=== PATIENT | female | born 1995 | race Caucasian/White ===

== ENCOUNTER 2021-12-10 12:26 | Outpatient (CLI) | payer OTHER | END 2021-12-10 12:27 | disposition EMS.NT | LOC: EMS 12:26 | DX: R06.02 Shortness of breath (principal); F41.9 Anxiety disorder, unspecified ==

== ENCOUNTER 2021-12-24 06:09 | Day surgery (SDC) | payer OTHER ==
[2021-12-24 06:26] LABS: HCG UR QUAL NEGATIVE
[2021-12-24] MEDS ORDERED: LACTATED RINGERS 1,000 ML IV ONE (06:26)
[2021-12-24] MEDS ORDERED: CEFAZOLIN SODIUM IN 0.9 % NACL 2 GM/50 ML BAG IV ONE (06:33)
--- NOTE | 2021-12-24 06:52 | ANESTHESIA ---
Pre-Anesthesia VS, & Labs - Diagnosis cholecystitis - Procedure laparoscopic cholecystectomy Vital Signs: Temp Pulse Resp BP Pulse Ox 36.6 C 89 20 111/75 98 12/24/21 06:27 12/24/21 06:27 12/24/21 06:27 12/24/21 06:27 12/24/21 06:27 Height: 5 ft 2 in Weight (kg): 75.4 kg Body Mass Index: 30.4 BMI Classification: Obese - NPO >8 hours - Is Patient ?: No Home Medications and Allergies Dicyclomine HCl 20 mg PO QID PRN 12/10/21 Spironolactone [Aldactone] 50 mg PO BID 12/10/21 Allergies/Adverse Reactions: Allergies Allergy/AdvReac Type Severity Reaction Status Date / Time No Known Drug Allergies Allergy Verified 12/24/21 06:09 Anes History & Medical History - Anesthetic History Anesthesia Complications: reports: No previous complications - Medical History Cardiovascular: reports: None, Other Pulmonary: reports: None Gastrointestinal: reports: None Urinary: reports: None Musculoskeletal: reports: None Endocrine/Autoimmune: reports: Other Skin: reports: Eczema Smoking Status: Never smoker History of Cancer?: No - Surgical History Gynecologic: reports: section Exam General: Alert, Oriented x3 Dental: WNL Mouth Opening: Greater than 4 Fingerbreadths Neck Mobility: Normal Mallampati classification: III Thyromental Distance: 4-6 cm Respiratory: Lungs clear Cardiovascular: Regular rate Plan Anesthesia Type: General Consent for Procedure(s) Verified and Reviewed: Yes Code Status: Attempt Resuscitation ASA classification: 2-Mild systemic disease Is this case an emergency?: No
[2021-12-24] MEDS ORDERED: NALOXONE 0.4 MG/ML VIAL IVP PRN (07:08)
[2021-12-24] MEDS ORDERED: METOCLOPRAMIDE 10 MG/2 ML VIAL IVP PRN (07:08)
[2021-12-24] MEDS ORDERED: fentaNYL 100 MCG/2 ML VIAL IVP PRN (07:08)
[2021-12-24] MEDS ORDERED: ePHEDrine 50 MG/ML VIAL IVP PRN (07:08)
[2021-12-24] MEDS ORDERED: HYDROmorphone 0.5 MG/0.5 ML SYRINGE IVP PRN (07:08)
[2021-12-24] MEDS ORDERED: MORPHINE 2 MG/ML CARPUJECT IVP PRN (07:08)
[2021-12-24] MEDS ORDERED: ATROPINE ABBOJECT 1 MG/10 ML SYRINGE IVP PRN (07:08)
[2021-12-24] MEDS ORDERED: ONDANSETRON 4 MG/2 ML VIAL IVP PRN ×2 (07:08→10:14)
[2021-12-24] MEDS ORDERED: LIDOCAINE-MPF 2% 5 ML VIAL ONE (07:10)
[2021-12-24] MEDS ORDERED: PROPOFOL 200 MG/20 ML VIAL IVP ONE ×2 (07:10→08:52)
[2021-12-24] MEDS ORDERED: ONDANSETRON 4 MG/2 ML VIAL ONE (07:10)
[2021-12-24] MEDS ORDERED: ROCURONIUM 50 MG/5 ML VIAL ONE (07:10)
[2021-12-24] MEDS ORDERED: MIDAZOLAM 2 MG/2 ML VIAL ONE (07:11)
[2021-12-24] MEDS ORDERED: fentaNYL 100 MCG/2 ML VIAL ONE ×2 (07:11→09:46)
[2021-12-24] MEDS ORDERED: DEXAMETHASONE 4 MG/ML VIAL ONE (07:11)
[2021-12-24] MEDS ORDERED: KETOROLAC 30 MG/ML VIAL ONE (07:11)
[2021-12-24] MEDS ORDERED: IOTHALAMATE MEGLUMINE 50 ML VIAL ONE (07:46)
[2021-12-24] MEDS ORDERED: BUPIVACAINE 0.25% PF 30 ML VIAL ONE (07:46)
[2021-12-24] MEDS ORDERED: LACTATED RINGERS 1,000 ML IV SCH (08:00)
[2021-12-24] MEDS ORDERED: BUPIVACAINE 0.25% PF 30 ML VIAL SUBQ ONE (08:08)
[2021-12-24] MEDS ORDERED: IOTHALAMATE MEGLUMINE 50 ML VIAL IVP ONE (08:09)
[2021-12-24] MEDS ORDERED: SUGAMMADEX 200 MG/2 ML VIAL IVP ONE (08:42)
[2021-12-24] MEDS ORDERED: LACTATED RINGERS 800 ML IV ONE (09:24)
--- NOTE | 2021-12-24 09:47 | ANESTHESIA POST OP EVALUATION ---
Anesthesia Post Eval - Post Anesthesia Eval Vitals: Last Vital Signs Temp 37.0 C 12/24/21 09:40 Pulse 96 12/24/21 09:40 Resp 12 12/24/21 09:40 BP 121/87 H 12/24/21 09:40 Pulse Ox 94 12/24/21 09:40 CV Function Including HR & BP: Stable Pain Control: Satisfactory Nausea & Vomiting: Negative Mental Status: Baseline Respiratory Status: Airway Patent Hydration Status: Satisfactory Anesthesia Complications: None
--- NOTE | 2021-12-24 10:09 | XRAY Report ---
PROCEDURE: OR Cholangiogram INDICATIONS: GALLSTONES COMPARISON: None. CONTRAST: CONTRAST: CONRAY FINDINGS: Biliary ducts: The surgeon injected contrast into the biliary ducts after cannulation of the cystic duct stump. Visualized intra- and extrahepatic bile ducts are normal in caliber, without strictures. No intraluminal filling defects to suggest retained ductal stones or sludge. No evidence for iatro genic ductal injury. Duodenum: Contrast flows promptly through the sphincter of Oddi into the duodenum, which appears nor mal in caliber. IMPRESSION: Unremarkable intraoperative cholangiogram Reviewed by: Rey Marie MD on 12/24/2021 9:08 AM [facility] Approved by: Rey Marie MD on 12/24/2021 9:08 AM LAS[facility] Station ID: [id number]
[2021-12-24] MEDS ORDERED: HYDROcod/ACETAM 5/325 MG TABLET PO PRN (10:14)
[2021-12-24 10:59] VITALS: BP 129/97
--- NOTE | 2021-12-24 16:12 | OPERATIVE REPORT ---
Operative Report - General Procedure Date: 12/24/21 Planned Procedure: lap jerel, cholangiogram, core needle liver biopsy Pre-Op Diagnosis: chronic cholecysitis and history elevated lfts x 3 yearss Procedure Performed: lap jerel, cholangiogram with fluoroscopy and interpretation, core needle liver biopsy Post Op Diagnosis: chronic cholcystitis. normal liver ducts. healthy appearing liver - Procedure Note Primary Surgeon: vera richards Anesthesia Technique: General ET tube, Local Pathology: gallbladder and liver bx Estimated Blood Loss (mL): 20 Drain/Tube Type: Other (none) Indications: daily right upper quadrant pain, gallbladder full of stones. hx elevated lfts x 3 years Findings: as above. cystic duct stone removed Complications: none - Other Other Information/Narrative: The patient was properly identified, brought to the operating room and placed in supine position. Sequential compression devices were placed. General endotracheal anesthesia was induced. The patient was prepped and draped in a sterile fashion and given preoperative antibiotics. Local anesthetic was given to incision areas. An incision was made in the periumbilical area. Dissection proceeded down to fascia. The fascia was incised lifted upwards and abdomen entered with a Veress needle. CO2 was insufflated to a pressure of 15. An 11 mm trocar followed by a 30 degree scope was placed. There was no evidence of injury from Veress needle or trocar placement. Under direct vision 2 5 mm trochars were placed in the right upper quadrant and an 11 mm trocar was placed in the epigastrium. Body of the gallbladder was retracted anterior. Lateral attachments were partially taken down further mobilizing the gallbladder more anterior and away from the duodenum. The infundibulum of the gallbladder was then retracted right lateral and caudad. With minimal use of cautery a large bare cystic plate area or window was carefully created. The cystic duct was ins pected from right lateral and left lateral positions. [Cholangiogram was performed. the cystic duct was clipped at the gallbladder. Cystic duct was partially open. A small stone was removed. Cholangiogram was performed with a ureteral catheter and Levy clamp. Cholangiogram is normal. The cystic duct was then further clipped x3 and completely divided. Gallbladder was removed from the bed of the liver. The gallbladder was tense and very thin-walled. There was scant spillage of bile. The gallbladder was placed in Endo Catch bag and brought out. The abdomen is irrigated. A core needle biopsy was performed of the right lobe. Hemostasis was assured with cautery. Abdomen again irrigated.] Trochars were removed under direct vision. Fascia at the larger trocar sites was closed with [id number] or running 0 Vicryl suture. Subcutaneous tissue was irrigated and skin closed with interrupted 4-0 Monocryl. Dressings were applied. Patient tolerated the procedure well was awakened and brought to recovery in good condition.
== END 2021-12-24 06:10 | disposition home or self-care (01) ==
LOC: SDS 06:09
PROVIDERS: ATTEND Surgery
PROC: BF100ZZ Fluoroscopy of Bile Ducts using High Osmolar Contrast (ICD-10-PCS; 2021-12-24)
PROC: 0FB13ZX Excision of Right Lobe Liver, Percutaneous Approach, Diagnostic (ICD-10-PCS; 2021-12-24)
PROC: 0FT44ZZ Resection of Gallbladder, Percutaneous Endoscopic Approach (ICD-10-PCS; principal; 2021-12-24 07:30)
DX: K80.10 Calculus of gallbladder with chronic cholecystitis without obstruction (principal); R94.5 Abnormal results of liver function studies; E66.9 Obesity, unspecified; Z68.30 Body mass index [BMI] 30.0-30.9, adult
CPT/HCPCS: 47001; 47563; 74300; 81025; C1758; J0690; J7120; Q9961

== ENCOUNTER 2022-06-11 07:09 | Outpatient (CLI) | payer OTHER ==
[2022-06-11] MEDS ORDERED: GADOBUTROL 7.5 MMOL/7.5 ML VIAL ONE (07:23)
[2022-06-11] MEDS ORDERED: GADOBUTROL 7.5 MMOL/7.5 ML VIAL IVP ONE (08:42)
--- NOTE | 2022-06-11 08:55 | MRI Report ---
PROCEDURE: Pelvis W/WO INDICATIONS: ABN UTERINE BLEEDING TECHNIQUE: Magnetic resonance images were obtained of the pelvis with and without IV contrast. COMPARISON: None. FINDINGS: Lower abdomen: No bowel obstruction. Rectum and colon, partially visualized, are within normal limits . No lymphadenopathy by size criteria. Bladder: Underdistended, unremarkable. Vasculature: No aneurysm in the [id number]. Pelvic wall: Unremarkable. Bones: No suspicious osseous lesions. Uterus: The endometrium measures within normal limits for age, about 6 mm. No focal mass. The junctio nal zone is within normal limits. There is an intramural fibroid in the left central region measuring 1.7 cm. The cervical glandular tissue appears thickened measuring up to 1.4 cm. There is a small out pouching of the endometrium at the lower uterine ventral segment (3/20) with focal myometrial thinnin g scarring. Ovaries: Mildly enlarged bilaterally with greater then 12 follicles. Lymph nodes: No lymphadenopathy by size criteria. IMPRESSION: Outpouching of the endometrium with focal myometrial thinning in the lower ventral uterine segment, p ossibly a small isthmocele if there is a history. Small adjacent fibroid is present. Thickened appearance of the cervical glandular tissue. Consider correlation with age-appropriate cerv ical cancer testing. Mildly enlarged ovaries with numerous follicles, sometimes seen in the setting of polycystic ovarian syndrome depending on clinical context. Reviewed by: Iván Montano MD on 06/11/2022 8:53 AM PDT Approved by: Iván Montano MD on 06/11/2022 8:53 AM PDT Station ID: [id number]
== END 2022-06-11 07:10 | disposition home or self-care (01) ==
LOC: DI 07:09
PROVIDERS: ATTEND Nurse Practitioner Family
DX: D25.1 Intramural leiomyoma of uterus (principal)
CPT/HCPCS: 72197; A9585

== ENCOUNTER 2023-01-18 21:11 | Emergency (ER) | payer OTHER ==
--- NOTE | 2023-01-18 21:24 | ED Physician Documentation ---
PD HPI CHEST PAIN - Stated complaint Stated Complaint: CHEST PX - Chief complaint Chief Complaint: Cardiac - History obtained from History obtained from: Patient - Additional information Additional information: Patient is a 27-year-old female presenting for evaluation of left-sided chest pain that is been present since Thursday. She has a history of PCOS. She reports that the pain feels sharp and is worse when she moves her left arm or turns her neck towards the left side. 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 She denies a history of hypertension, hyperlipidemia, diabetes, early CAD in the family, PE or DVT. Denies recent immobilization. No shortness of breath, leg swelling or pain. No abdominal symptoms. She has not taken anything else for the pain. Review of Systems Constitutional: denies: Fever Cardiac: reports: Chest pain / pressure Respiratory: denies: Dyspnea, Cough GI: denies: Abdominal Pain, Vomiting Musculoskeletal: denies: Extremity pain, Extremity swelling Neurologic: denies: Headache PD PAST MEDICAL HISTORY - Past Medical History Cardiovascular: None, Other Respiratory: None Endocrine/Autoimmune: Other GI: None : None HEENT: None Musculoskeletal: None Derm: Eczema - Past Surgical History /HOMEBIRTH MIDWIFE: section - Present Medications Home Medications: Ambulatory Orders Medication Instructions Recorded Confirmed Dicyclomine HCl 20 mg PO QID PRN 12/10/21 12/19/21 Spironolactone [Aldactone] 50 mg PO BID 12/10/21 12/19/21 HYDROcod/ACETAM 5/325 [[place] 5/325] 1 each PO Q6H PRN #20 tablet 12/24/21 Ondansetron Odt [Zofran Odt] 4 mg PO Q6H PRN #15 tablet 12/24/21 - Allergies Allergies/Adverse Reactions: Allergies Allergy/AdvReac Type Severity Reaction Status Date / Time No Known Drug Allergies Allergy Verified 01/18/23 21:13 - Social History Smoking Status: Never smoker PD ED PE NORMAL - General General: Alert and oriented X 3, No acute distress, Well developed/nourished - HEENT HEENT: Atraumatic - Neck Neck: Supple, no meningeal sign - Cardiac Cardiac: RRR, No murmur, Other (Left-sided chest wall tenderness to palpation with no deformities or rash) - Respiratory Respiratory: No respiratory distress, Clear bilaterally - Abdomen Abdomen: Soft, Non tender - Extremities Extremities: No edema, No calf tenderness / cord Results - Vitals Vitals: Vital Signs - 24 hr 01/18/23 01/18/23 21:14 22:06 Temperature 36.5 C Heart Rate 98 72 Respiratory 16 16 Rate Blood Pressure 133/90 H 117/79 O2 Saturation 98 96 Oxygen O2 Source Room air - EKG (time done) 2138 EKG releavant findings:: EKG personally interpreted by author of this note. Relevant findings are: Rate 83, normal sinus rhythm, no STEMI, Q waves present in lead III, no ST depressions, No significant change from prior EKG on 12/10/2021 Rate: Rate (enter#) (83) Rhythm: NSR Intervals: No: Prolonged QT Ischemia: Q waves (Lead III). No: ST elevation c/w ischemia, ST depression Compare to prior EKG: Unchanged from prior EKG (12/10/21) - Labs Labs: Laboratory Tests 01/18/23 01/18/23 01/18/23 21:27 21:27 21:27 WBC 8.5 RBC 4.58 Hgb 13.7 Hct 41.6 MCV 90.8 MCH 29.9 MCHC 32.9 RDW 11.9 L Plt Count 228 MPV 9.5 Neut # (Auto) 4.8 Lymph # (Auto) 2.9 [place] # (Auto) 0.5 Eos # (Auto) 0.2 Baso # (Auto) 0.1 Absolute Nucleated RBC 0.00 Nucleated RBC % 0.0 Sodium 139 Potassium 3.6 Chloride 104 Carbon Dioxide 26 Anion Gap 9.0 BUN 16 Creatinine 0.7 Estimated GFR (MDRD) 101 Glucose 136 H Calcium 9.2 Troponin I High Sens 2.6 PD Medical Decision Making - ED course Complexity details: reviewed results, re-evaluated patient, d/w patient ED course: Patient is a 27-year-old female presenting for evaluation of left-sided chest pain that has been constant since Thursday. Her symptoms seem atypical for ACS and she has no known risk factors for coronary artery disease. Her EKG is reviewed without signs of acute ischemia. CBC, BMP and troponin were also obtained and without any significant findings. Reviewed her chest x-ray and see a normal heart size with no signs of effusion or consolidation.She does have tenderness to the chest wall and her pain seems to be worse with certain movements. Therefore I feel that this is likely a musculoskeletal etiology for her pain. Do not think she needs a repeat troponin given the duration of her s ymptoms with a negative high-sensitivity troponin. Her symptoms also do not suggest unstable angina. She has a PERC negative. No migratory symptoms to suggest a dissection. She was counseled on continued supportive care as well as concerning symptoms to return for. Departure - Departure Disposition: 01 Home, Self Care Clinical Impression: Chest pain Condition: Stable Instructions: ED Chest Pain NonCardiac Comments: You were evaluated for chest pain. Your blood test and x-ray and EKG to take a look at your heart Emmel. I believe your symptoms are likely related to a muscle sprain given that it is worse with certain movements and at that area appears to be sore to the touch. I would continue with anti-inflammatory such as acetaminophen or ibuprofen and avoiding any activities of lifting, pushing or pulling that may further irritate the muscles in this region. I would expect her symptoms to get better over the next several days. If they are not then I would recommend close follow-up with your primary care provider. Please return to the emergency department if your symptoms worsen in any way. Discharge Date/Time: 01/18/23 22:08
[2023-01-18 21:33] LABS: BASOPHILS # (AUTO) 0.1 10^3/uL (0.0-0.1); BASOPHILS % (AUTO) 0.7 %; EOSINOPHILS # (AUTO) 0.2 10^3/uL (0.0-0.7); EOSINOPHILS % (AUTO) 2.5 %; HCT - HEMATOCRIT 41.6 % (37.0-47.0); HGB - HEMOGLOBIN 13.7 g/dL (12.0-16.0); LYMPHOCYTES # (AUTO) 2.9 10^3/uL (1.5-3.5); LYMPHOCYTES % (AUTO) 33.6 %; MEAN CORPUSCULAR HEMOGLOBIN 29.9 pg (27.0-31.0); MEAN CORPUSCULAR HGB CONC 32.9 g/dL (32.0-36.0); MEAN CORPUSCULAR VOLUME 90.8 fL (81.0-99.0); MEAN PLATELET VOLUME 9.5 fL (7.9-10.8); MONOCYTES # (AUTO) 0.5 10^3/uL (0.0-1.0); MONOCYTES % (AUTO) 6.1 %; NEUTROPHILS # (AUTO) 4.8 10^3/uL (1.5-6.6); NEUTROPHILS % (AUTO) 56.5 %; PLT - PLATELET COUNT 228 10^3/uL (130-450); RED BLOOD COUNT 4.58 10^6/uL (4.20-5.40); RED CELL DISTRIBUTION WIDTH 11.9 % (12.0-15.0); WHITE BLOOD COUNT 8.5 x10^3/uL (4.8-10.8)
[2023-01-18 21:43] LABS: CALCIUM 9.2 mg/dL (8.5-10.3); CREATININE 0.7 mg/dL (0.4-1.0); POTASSIUM 3.6 mmol/L (3.5-5.0)
[2023-01-18 22:08] VITALS: BP 117/79
--- NOTE | 2023-01-18 22:40 | XRAY Report ---
PROCEDURE: Chest 1 View X-Ray INDICATIONS: CP TECHNIQUE: One view of the chest was acquired. COMPARISON: Chest x-ray 12/10/2021. FINDINGS: Surgical changes and devices: None. Lungs and pleura: No pleural effusions or pneumothorax. Lungs are clear. Mediastinum: Mediastinal contours appear normal. Heart size is normal. Bones and chest wall: No suspicious bony lesions. Overlying soft tissues appear unremarkable. IMPRESSION: No acute cardiopulmonary disease. Reviewed by: Arnol Gamble MD on 01/18/2023 10:38 PM PDT Approved by: Arnol Gamble MD on 01/18/2023 10:38 PM PDT Station ID: [id number]
== END 2023-01-18 22:08 | disposition home or self-care (01) ==
LOC: ED 21:11
DX: R07.9 Chest pain, unspecified (principal)
CPT/HCPCS: 36415; 80048; 84484; 85025; 93005; 99283; 99284

== ENCOUNTER 2023-03-10 08:00 | Outpatient (CLI) | payer OTHER | END 2023-03-10 23:59 | disposition home or self-care (01) | LOC: LAB.N 08:00 | PROVIDERS: ATTEND Specialist | DX: R30.0 Dysuria (principal) | CPT/HCPCS: 87086; 87181 ==

== ENCOUNTER 2023-05-22 19:48 | Emergency (ER) | payer OTHER ==
[2023-05-22 19:57] VITALS: BP 140/88; O2SAT 96
[2023-05-22 20:10] LABS: BILIRUBIN,URINE NEGATIVE (NEGATIVE); GLUCOSE, URINE (UA) NEGATIVE (NEGATIVE); KETONES,URINE (UA) TRACE mg/dL (NEGATIVE); LEUKOCYTE ESTERASE, URINE NEGATIVE (NEGATIVE); NITRITE,URINE NEGATIVE (NEGATIVE); OCCULT BLOOD,URINE MODERATE (NEGATIVE); PROTEIN,URINE 30 mg/dL (NEGATIVE); UROBILINOGEN,URINE 1 (NORMAL) E.U./dL (NORMAL)
[2023-05-22 20:14] LABS: CLARITY,URINE HAZY (CLEAR)
[2023-05-22 20:15] LABS: HCG UR QUAL NEGATIVE
[2023-05-22 20:20] LABS: BASOPHILS # (AUTO) 0.1 10^3/uL (0.0-0.1); BASOPHILS % (AUTO) 0.6 %; EOSINOPHILS # (AUTO) 0.2 10^3/uL (0.0-0.7); EOSINOPHILS % (AUTO) 2.6 %; HCT - HEMATOCRIT 41.4 % (37.0-47.0); LYMPHOCYTES # (AUTO) 2.6 10^3/uL (1.5-3.5); LYMPHOCYTES % (AUTO) 30.8 %; MEAN CORPUSCULAR HEMOGLOBIN 30.6 pg (27.0-31.0); MEAN CORPUSCULAR HGB CONC 33.8 g/dL (32.0-36.0); MEAN CORPUSCULAR VOLUME 90.4 fL (81.0-99.0); MEAN PLATELET VOLUME 9.2 fL (7.9-10.8); MONOCYTES # (AUTO) 0.6 10^3/uL (0.0-1.0); MONOCYTES % (AUTO) 7.4 %; PLT - PLATELET COUNT 224 10^3/uL (130-450); RED BLOOD COUNT 4.58 10^6/uL (4.20-5.40); RED CELL DISTRIBUTION WIDTH 11.7 % (12.0-15.0); WHITE BLOOD COUNT 8.5 x10^3/uL (4.8-10.8)
[2023-05-22] MEDS ORDERED: IBUPROFEN 800 MG TABLET PO STA (20:21)
--- NOTE | 2023-05-22 20:21 | ED Physician Documentation ---
PD HPI ABD PAIN - Stated complaint Stated Complaint: ABD PX - Chief complaint Chief Complaint: Abd Pain - History obtained from History obtained from: Patient - Additional information Additional information: 28-year-old woman, G1, P1 history of cholecystectomy and . She had a normal menses 2 weeks ago. Last night developed cramping which was quite severe today around 3:00 but did seem to respond to ibuprofen. She was briefly nauseous and the pain does radiate to the tailbone. She has no dysuria or hematuria. No bleeding or discharge currently. She does have a history also of PCOS. PD PAST MEDICAL HISTORY - Past Medical History Cardiovascular: None, Other Respiratory: None Endocrine/Autoimmune: Other GI: None : None HEENT: None Musculoskeletal: None Derm: Eczema - Past Surgical History /HAM TRIMMER: section - Present Medications Home Medications: Ambulatory Orders Medication Instructions Recorded Confirmed Dicyclomine HCl 20 mg PO QID PRN 12/10/21 12/19/21 Spironolactone [Aldactone] 50 mg PO BID 12/10/21 12/19/21 HYDROcod/ACETAM 5/325 [[place] 5/325] 1 each PO Q6H PRN #20 tablet 12/24/21 Ondansetron Odt [Zofran Odt] 4 mg PO Q6H PRN #15 tablet 12/24/21 - Allergies Allergies/Adverse Reactions: Allergies Allergy/AdvReac Type Severity Reaction Status Date / Time No Known Drug Allergies Allergy Verified 05/22/23 19:51 - Social History Smoking Status: Never smoker PD ED PE NORMAL - Vitals Vital signs reviewed: Yes - General General: Alert and oriented X 3, No acute distress - Abdomen Abdomen: Normal bowel sounds, Soft, Non tender - Back Back: No CVA TTP - Neuro Neuro: Alert and oriented X 3, Normal speech Results - Vitals Vitals: Vital Signs - 24 hr 05/22/23 19:52 Temperature 36.8 C Heart Rate 90 Respiratory 18 Rate Blood Pressure 140/88 H O2 Saturation 96 Oxygen O2 Source Room air - Labs Labs: Laboratory Tests 05/22/23 05/22/23 05/22/23 20:00 20:17 20:17 WBC 8.5 RBC 4.58 Hgb 14.0 Hct 41.4 MCV 90.4 MCH 30.6 MCHC 33.8 RDW 11.7 L Plt Count 224 MPV 9.2 Neut # (Auto) 5.0 Lymph # (Auto) 2.6 [place] # (Auto) 0.6 Eos # (Auto) 0.2 Baso # (Auto) 0.1 Absolute Nucleated RBC 0.00 Nucleated RBC % 0.0 Sodium 138 Potassium 3.6 Chloride 104 Carbon Dioxide 28 Anion Gap 6.0 BUN 19 Creatinine 0.7 Estimated GFR (MDRD) 100 Glucose 125 H Calcium 9.2 Total Bilirubin 0.4 AST 48 H ALT 91 H Alkaline Phosphatase 73 Total Protein 6.9 Albumin 4.6 Globulin 2.3 Albumin/Globulin Ratio 2.0 Lipase 37 Urine Color YELLOW Urine Clarity HAZY Urine pH 7.0 Ur Specific [place] 1.025 Urine Protein 30 H Urine Glucose (UA) NEGATIVE Urine Ketones TRACE Urine Occult Blood MODERATE H Urine Nitrite NEGATIVE Urine Bilirubin NEGATIVE Urine Urobilinogen 1 (NORMAL) Ur Leukocyte Esterase NEGATIVE Urine RBC 6-10 H Urine WBC 0-3 Ur Squamous Epith Cells FEW Squamous Urine Bacteria Rare Ur Microscopic Review INDICATED Urine Culture Comments NOT INDICATED Urine HCG, Qual NEGATIVE PD Medical Decision Making - ED course ED course: She presents with pelvic pain, does not appear to have a torsion. She does have a small right ovarian cyst which likely is the cause of her pain. Small amount of blood in the urine and proteinuria and recheck advised. Has mild elevation of AST and ALT better than last year, question fatty liver Departure - Departure Disposition: 01 Home, Self Care Clinical Impression: Right ovarian cyst, Pelvic pain in female Condition: Good Record reviewed to determine appropriate education?: Yes Instructions: ED Cyst Ovarian Comments: You were seen today for pelvic pain and we found that you had a small right ovarian cyst. Pain should resolve over the next few days. You can continue the ibuprofen for the pain. Other pertinent results, you have mild elevation in your liver enzymes which has improved over the last year and a half, and a small amount of protein and blood in your urine which should be rechecked at your next regular women's appointment. Return for new or worsening symptoms. Forms: PCP List Discharge Date/Time: 05/22/23 21:12
[2023-05-22 20:32] LABS: BACTERIA,URINE Rare /HPF (None Seen); SQUAMOUS EPITHELIAL CELL,UR FEW Squamous (<= Few); WBC,URINE 0-3 /HPF (0-5)
[2023-05-22 20:36] LABS: ALBUMIN 4.6 g/dL (3.2-5.5); BILIRUBIN,TOTAL 0.4 mg/dL (0.2-1.0); CALCIUM 9.2 mg/dL (8.5-10.3); CREATININE 0.7 mg/dL (0.6-1.3); POTASSIUM 3.6 mmol/L (3.5-4.5); TOTAL PROTEIN 6.9 g/dL (6.4-8.9)
--- NOTE | 2023-05-22 21:46 | Ultrasound Report ---
PROCEDURE: Pelvic w/Doppler Complete INDICATIONS: pelvic pain TECHNIQUE: Real-time transabdominal scanning was performed of the pelvic organs, with image documentation. No t ransvaginal imaging was performed. COMPARISON: Correlation is made with pelvis MRI, 06/11/2022. FINDINGS: Uterus: Uterus is anteverted and normal in size at 8 x 4 x 6.2 cm. The myometrium is homogeneous. The endometrium measures 11 mm in combined thickness. Along the left anterior uterus, there is an in tramural fibroid seen that measures up to 2.3 cm. Ovaries: The right ovary measures 3.5 x 2.5 x 3.7 cm, with a calculated ovarian volume of 17 cc. The right ovary demonstrates a 2.5 cm cystic follicle, which is considered to be within physiologic limi ts. The left ovary measures 2.8 x 3.1 x 1.6 cm, with a calculated ovarian volume of 7 cc. The ovarie s have a normal sonographic appearance. No adnexal masses are seen. No cystic lesions measuring gr eater than 3 cm. Normal-appearing arterial and arterial waveforms are confirmed to each ovary. Other: No free pelvic fluid. IMPRESSION: Transabdominal scan demonstrating no findings of ovarian torsion. Note: Concordant preliminary findings given by the natural gas trader upon the completion of the examination to Dr. Carpenter. Reviewed by: Parish Wiseman MD on 05/22/2023 8:44 PM [facility] Approved by: Parish Wiseman MD on 05/22/2023 8:44 PM L[facility] Station ID: [id number]
== END 2023-05-22 21:12 | disposition home or self-care (01) ==
LOC: ED 19:48
DX: N83.201 Unspecified ovarian cyst, right side (principal); R10.2 Pelvic and perineal pain
CPT/HCPCS: 36415; 76856; 80053; 81001; 81025; 83690; 85025; 93975; 99283; 99284; A9270; 81003; 87086

== ENCOUNTER 2023-07-06 20:26 | Emergency (ER) | payer OTHER ==
[2023-07-06 20:43] VITALS: BP 135/85; O2SAT 99
--- NOTE | 2023-07-06 20:48 | ED Physician Documentation ---
History of Present Illness - Stated complaint Stated Complaint: FEVER/CP - Chief complaint Chief Complaint: Fever - History obtained from History obtained from: Patient - Additonal information Additional information: 28-year-old female with no significant past medical history presents after feeling somewhat flushed at home. She then took a forehead temperature which was 100. This caused her to feel somewhat anxious because she is home alone with her child as her is deployed and she was concerned about being sick. She was not having any other symptoms however, no cough or URI symptoms, no sore throat, no difficulty breathing, no abdominal pain nausea vomiting or diarrhea no urinary symptoms, no rash. No known sick contacts. She took a Small sip of her children's liquid Tylenol as she did not have any adult tablets at home and then she subsequently felt a little bit of chest pain across the entire upper chest. It was sharp in nature, nonradiating and nonexertional. She had no associated symptoms with this. It has since resolved. The patient states she thinks it was probably anxiety but she was worried about the possible fever at home and thus wanted to be evaluated. The patient has no history of heart disease, she does not smoke, no family history of early heart disease, she does not have diabetes, nor hypertension. PD PAST MEDICAL HISTORY - Past Medical History Past Medical History: No Cardiovascular: None, Other Respiratory: None Endocrine/Autoimmune: Other GI: None : None HEENT: None Musculoskeletal: None Derm: Eczema - Past Surgical History /[employer]: section - Present Medications Home Medications: Ambulatory Orders Medication Instructions Recorded Confirmed Dicyclomine HCl 20 mg PO QID PRN 12/10/21 12/19/21 Spironolactone [Aldactone] 50 mg PO BID 12/10/21 12/19/21 HYDROcod/ACETAM 5/325 [Lucinda 5/325] 1 each PO Q6H PRN #20 tablet 12/24/21 Ondansetron Odt [Zofran Odt] 4 mg PO Q6H PRN #15 tablet 12/24/21 - Allergies Allergies/Adverse Reactions: Allergies Allergy/AdvReac Type Severity Reaction Status Date / Time No Known Drug Allergies Allergy Verified 07/06/23 20:29 - Social History Smoking Status: Never smoker PD ED PE NORMAL - Vitals Vital signs reviewed: Yes - General General: Alert and oriented X 3, No acute distress, Well developed/nourished - HEENT HEENT: Atraumatic, Moist mucous membranes, Pharynx benign - Neck Neck: Supple, no meningeal sign, No JVD - Cardiac Cardiac: RRR, No murmur, No gallop, No rub, Strong equal pulses - Respiratory Respiratory: No respiratory distress, Clear bilaterally - Abdomen Abdomen: Normal bowel sounds, Soft, Non distended - Derm Derm: Normal color, Warm and dry - Neuro Neuro: Alert and oriented X 3 Eye Opening: Spontaneous Motor: Obeys Commands Verbal: Oriented GCS Score: 15 - Psych Psych: Normal mood, Normal affect Results - Vitals Vitals: Vital Signs - 24 hr 07/06/23 20:29 Temperature 37.4 C Heart Rate 95 Respiratory 16 Rate Blood Pressure 135/85 H O2 Saturation 99 Oxygen O2 Source Room air - EKG (time done) No standard instances EKG releavant findings:: EKG personally interpreted by author of this note. Relevant findings are: Rate: Rate (enter#) (83) Rhythm: NSR [place]: Normal Intervals: Normal OK QRS: Normal Ischemia: Normal ST segments Computer interpretation: Agree with computer - Rads (name of study) No standard instances Relevant Findings:: Final report received PD Medical Decision Making - ED course Complexity details: reviewed results, considered differential, d/w patient ED course: 28-year-old female presented with chest discomfort and a temperature of 100 at home. The patient has no other symptoms. Her chest discomfort had resolved upon arrival here. She is tearful, somewhat anxious and feels like that is likely contributing to her symptoms. We did obtain an EKG to evaluate for any acute abnormalities and this was normal. Her chest x-ray is also normal. The patient may have a mild viral illness causing her symptoms but at this time it does not appear to be anything serious. I have low suspicion for ACS or PE given patient's history and physical exam. No additional lab tests are indicated at this time and patient was advised to treat her fever at home with as needed ibuprofen and Tylenol, and I discussed return precautions if new or worsening symptoms. Departure - Departure Disposition: Home, Self Care Clinical Impression: Atypical chest pain Condition: Good Instructions: ED Chest Pain NonCardiac Comments: Your chest xray and EKG are normal. You may be developing a mild viral illness given your fever at home, though you do not have any other symptoms of this. You can take ibuprofen or tylenol for pain but I do recommend purchasing adult doses otherwise you have to consume a fairly large amount of children's liquid to get appropriate dosing. Please return if you have new or worsening concerns. Forms: PCP List
--- NOTE | 2023-07-06 21:33 | XRAY Report ---
PROCEDURE: Chest 1 View X-Ray INDICATIONS: chest pain TECHNIQUE: One view of the chest was acquired. COMPARISON: 01/18/2023 FINDINGS: Surgical changes and devices: None. Lungs and pleura: No pleural effusions or pneumothorax. Lungs are clear. Mediastinum: Mediastinal contours appear normal. Heart size is normal. Bones and chest wall: No suspicious bony lesions. Overlying soft tissues appear unremarkable. IMPRESSION: No acute cardiopulmonary process. Reviewed by: Maureen Cook MD on 07/06/2023 9:32 PM PDT Approved by: Maureen Cook MD on 07/06/2023 9:32 PM PDT Station ID: [id number]
== END 2023-07-06 21:18 | disposition home or self-care (01) ==
LOC: ED 20:26
DX: R07.89 Other chest pain (principal)
CPT/HCPCS: 93005; 99283; 99284